=== PATIENT | male | born 1940 | race Caucasian/White ===

== ENCOUNTER 2020-05-03 08:45 | Inpatient (IN) | payer MEDICARE ==
[~2020-05-03] VITALS: Ht 182.9 cm; Wt 92.7 kg
[2020-05-03] VITALS (11 sets, daily range): BP systolic 111–147; BP diastolic 49–86; PULSE 58–83; TEMP 98.2–98.7
[2020-05-03 09:43] LABS: INR 1.2 (0.8-3.0); PROTHROMBIN TIME 13.5 SECONDS (9.7-12.8)
[2020-05-03] MEDS ORDERED: FOSAMAX 70MG TA70 MG PO (09:44)
[2020-05-03 09:48] LABS: CALCIUM 9.9 mg/dL (8.4-10.2); CREATININE, serum 1.25 (0.66-1.25); POTASSIUM 3.8 mmol/L (3.4-5.0)
[2020-05-03] MEDS ORDERED: LIPITOR 40MG TA40 MG PO (09:48)
[2020-05-03] MEDS ORDERED: CALCIUM CARBON500 M1 PO (09:48)
[2020-05-03] MEDS ORDERED: ANORO IH (09:48)
[2020-05-03] MEDS ORDERED: FLUORIDEX112 GM DT (09:49)
[2020-05-03] MEDS ORDERED: COZAAR 50MG50 MG/TAB PO (09:49)
[2020-05-03] MEDS ORDERED: TRUSOPT OCUMETE10 ML OU (09:50)
[2020-05-03] MEDS ORDERED: FIBER0.52 GM PO (09:50)
[2020-05-03] MEDS ORDERED: LUNESTA3 MG PO (09:51)
[2020-05-03] MEDS ORDERED: XALATAN EYE DROPS OD (09:51)
[2020-05-03] MEDS ORDERED: LASIX 80MG TABL80 MG PO (09:51)
[2020-05-03] MEDS ORDERED: TOPROL XL 50MG50 MG PO (09:52)
[2020-05-03] MEDS ORDERED: REMERON45 MG PO (09:53)
[2020-05-03] MEDS ORDERED: ONE-A-DAY ESSE1 EACH PO (09:53)
[2020-05-03] MEDS ORDERED: NITROSTAT0.4 MG/TAB SL (09:54)
[2020-05-03] MEDS ORDERED: PRIL40 PO (09:54)
[2020-05-03] MEDS ORDERED: OMEGA-3 1000 MG1 CAP PO (09:54)
[2020-05-03] MEDS ORDERED: PROAIR HFA0.09 MG/AC IH (09:55)
[2020-05-03] MEDS ORDERED: K-DUR 10 MEQ T10 MEQ PO (09:55)
[2020-05-03] MEDS ORDERED: VITAMIN D 400400 IU PO (09:56)
[2020-05-03] MEDS ORDERED: STOOL SOFTENER240 M1 PO (09:56)
[2020-05-03] MEDS ORDERED: COUMADIN 5MG5 MG/TAB PO (09:57)
[2020-05-03 09:58] LABS: BASO # 0.1 (0.0-0.2); BASO % 0.6 % (0.0-2.0); EOS # 0.4 (0.0-0.7); EOS % 3.9 % (0-4.0); GRAN # 6.3 (1.4-6.5); GRAN % 67.7 % (42.2-75.2); HEMATOCRIT 42.7 % (42.0-52.0); HEMOGLOBIN 13.8 g/dl (13.5-18.0); LYMPH # 1.7 (1.2-3.4); MEAN CELL VOLUME 99 fl (80.0-100.0); MEAN CORPUSCULAR HEMOGLOBIN 32 pg (27.0-31.0); MEAN CORPUSCULAR HGB CONC 32 g/dl (33.0-37.0); MEAN PLATELET VOLUME 10.6 fl (7.4-10.4); MONO # 0.9 (0.1-0.6); MONO % 9.5 % (1.7-9.3); PLATELET COUNT 157 K/mm3 (130-400); RED BLOOD COUNT 4.32 M/mm3 (4.20-5.60); REDCELL DISTRIBUTION WIDTH-CV 12.6 % (11.5-14.5)
--- NOTE | 2020-05-03 10:20 | NUR ---
Pt was taken to blood bank laboratory technician by VIOLA Ibarra. accompanies to wait in [employer]ing [employer]ines [employer]person waiting room with pt's belongings. He will be taken to medical unit following pacemaker placement.
--- NOTE | 2020-05-03 10:43 | NUR ---
SEE MERGE FOR ALL MEDICATION ADMINISTRATION TIMES, INTRA AND POST SEDATION ASSESSMENTS
--- NOTE | 2020-05-03 12:00 | NUR ---
returned to room from laborer syrup machine, awake and alert, IV infusing per dial-a-flow at 30ml/hr, to left hand, IV site is without redness or swelling, left arm in sling and patient instructed on use of sling, has dressing to left upper chest over pacemaker site and is CD&I, dressing over mid chest where loop recorder removed is CD&I, ice placed over pacemaker site, denies needs, at bedside
--- NOTE | 2020-05-03 13:00 | NUR ---
full assessment completed, see interventions for further info
--- NOTE | 2020-05-03 13:30 | NUR ---
resting in bed ready to have lunch, denies needs
--- NOTE | 2020-05-03 14:15 | NUR ---
resting in bed with eyes closed, VS obtained, denies needs
--- NOTE | 2020-05-03 16:41 | NUR ---
assisted up to bathroom and voided qs, then assisted over to the recliner and will sit up in chair for a while, both sites are CD&I and sling remains in place to left arm
--- NOTE | 2020-05-03 17:45 | NUR ---
remains up in chair and is now eating supper
--- NOTE | 2020-05-03 19:08 | NUR ---
bedside shift report given to VIOLA Sánchez
--- NOTE | 2020-05-03 21:17 | NUR ---
Patient alert and oriented, complain of mild pain to left chest. Patient ambulate independently in the room. Pacemaker placement incision site and loop recorder remover site dressings appear dry, intact, no redness or edema. Patient was educated on arm restriction. No further question or concern at this time.
--- NOTE | 2020-05-04 04:10 | NUR ---
Patient awake, completed pacemaker download.
[2020-05-04 04:37] VITALS: BP 118/55; PULSE 60; TEMP 98.2
[2020-05-04 06:59] LABS: BASO # 0.1 (0.0-0.2); BASO % 0.6 % (0.0-2.0); EOS # 0.3 (0.0-0.7); EOS % 3.6 % (0-4.0); GRAN # 5.3 (1.4-6.5); GRAN % 66.3 % (42.2-75.2); HEMATOCRIT 39.9 % (42.0-52.0); HEMOGLOBIN 12.5 g/dl (13.5-18.0); LYMPH # 1.6 (1.2-3.4); LYMPH % 19.6 % (20.0-51.0); MEAN CELL VOLUME 102 fl (80.0-100.0); MEAN CORPUSCULAR HEMOGLOBIN 32 pg (27.0-31.0); MEAN CORPUSCULAR HGB CONC 31 g/dl (33.0-37.0); MEAN PLATELET VOLUME 11.1 fl (7.4-10.4); MONO # 0.8 (0.1-0.6); MONO % 9.5 % (1.7-9.3); PLATELET COUNT 135 K/mm3 (130-400); RED BLOOD COUNT 3.93 M/mm3 (4.20-5.60); REDCELL DISTRIBUTION WIDTH-CV 12.6 % (11.5-14.5)
[2020-05-04 07:01] LABS: INR 1.2 (0.8-3.0); PROTHROMBIN TIME 13.4 SECONDS (9.7-12.8)
[2020-05-04 07:24] LABS: CALCIUM 9.1 mg/dL (8.4-10.2); CREATININE, serum 1.33 (0.66-1.25)
[2020-05-04 08:24] VITALS: BP 124/58; PULSE 61; TEMP 98.6
--- NOTE | 2020-05-04 09:41 | NUR ---
Patient A/O x4. Dressings to left upper chest and chest area clean/dry/intact. No signs and symptoms of infection. Patient stated very mild discomfort to his left shoulder area upon moving/ambulating. Patient denied any pain meds. Left hand IV site has no signs and symptoms of complications. Scheduled moring medications given. QTC level was 506. Called Cardiology and spoke to nurse practitioner Yi. Per Yi, patient can have Betapace. Patient denied need at this time.
--- NOTE | 2020-05-04 11:06 | NUR ---
First visit from the lumber inspector. No needs right now.
[2020-05-04 11:38] VITALS: BP 121/58; PULSE 60; TEMP 98.2
--- NOTE | 2020-05-04 16:17 | NUR ---
Magnetic Tester met with patient to discuss discharge planning. Patient lives in [place] with his , Areli (ph#[phone]) and sees Dr. English in [place] for primary care. Patient obtains medications from [facility] with no difficulties. Patient has a CPAP and oxygen concentrator at home from [facility] out of [place]. Patient states he uses oxygen with ambulation. Patient uses no other DME and reports independence with ADLS. Patient does not have Advance Directives and was not interested in completing DPOA-HC form at this time. Patient plans to return home upon discharge with Areli providing transportation.
[2020-05-04 16:51] VITALS: BP 95/57; PULSE 56; TEMP 98.4
--- NOTE | 2020-05-04 18:26 | NUR ---
Patient alert and oriented. Denies any pain or discomfort while at rest. Slight discomofort to left shoulder area upon movement. Scheduled for Cardioversion at 11:30 am tomorrow. Instruction provided. Will give report to power and recovery shift engineer RN.
[2020-05-04 19:26] VITALS: BP 114/57; PULSE 62; TEMP 99.4
--- NOTE | 2020-05-04 20:20 | NUR ---
Resting in bed. Assessment complete. Lungs clear. Heart sounds normal. Bowels active x4. Pulses present throughout. +1 edema to bilateral lower extremities noted. INT left hand flushed without complications. Denies pain. Left upper chest incision and medial chest incision CDI with gauze as dressing. Patient denies needs at this time. Call light in reach.
[2020-05-04 23:51] VITALS: BP 115/57; PULSE 62; TEMP 98.7
--- NOTE | 2020-05-04 23:52 | NUR ---
Resting in recliner. Denies needs. Call light in reach.
--- NOTE | 2020-05-05 02:22 | NUR ---
Resting in bed. Denies needs. Call light in reach.
[2020-05-05 04:17] VITALS: BP 109/61; PULSE 65; TEMP 97.7
--- NOTE | 2020-05-05 06:02 | NUR ---
Patient had uneventful night. NPO since midnight with the execption of sips of water with medications. Resting in bed this AM. Call light in reach.
--- NOTE | 2020-05-05 07:02 | NUR ---
Report given to VIOLA Langston
[2020-05-05 07:25] LABS: BASO # 0.1 (0.0-0.2); BASO % 0.9 % (0.0-2.0); EOS # 0.3 (0.0-0.7); EOS % 3.5 % (0-4.0); GRAN # 5.2 (1.4-6.5); GRAN % 65.4 % (42.2-75.2); HEMATOCRIT 42.7 % (42.0-52.0); HEMOGLOBIN 13.5 g/dl (13.5-18.0); LYMPH # 1.6 (1.2-3.4); LYMPH % 20.4 % (20.0-51.0); MEAN CELL VOLUME 100 fl (80.0-100.0); MEAN CORPUSCULAR HEMOGLOBIN 32 pg (27.0-31.0); MEAN CORPUSCULAR HGB CONC 32 g/dl (33.0-37.0); MEAN PLATELET VOLUME 10.9 fl (7.4-10.4); MONO # 0.7 (0.1-0.6); MONO % 9.4 % (1.7-9.3); PLATELET COUNT 143 K/mm3 (130-400); RED BLOOD COUNT 4.28 M/mm3 (4.20-5.60); REDCELL DISTRIBUTION WIDTH-CV 12.6 % (11.5-14.5)
[2020-05-05 07:36] LABS: INR 1.2 (0.8-3.0); PROTHROMBIN TIME 13.5 SECONDS (9.7-12.8)
[2020-05-05 07:40] LABS: CALCIUM 9.2 mg/dL (8.4-10.2); CREATININE, serum 1.5 (0.66-1.25); POTASSIUM 3.8 mmol/L (3.4-5.0)
[2020-05-05 08:12] VITALS: BP 104/59; PULSE 62; TEMP 98.1
[2020-05-05 11:16] LABS: COLLECTION METHOD CLEAN CATCH
[2020-05-05 11:20] LABS: MUCOUS Present /lpf; PH 5 (5-8); SQUAMOUS EPITHELIAL None Seen /hpf; URINE APPEARANCE Hazy; URINE BACTERIA None Seen /hpf; URINE BILIRUBIN Negative (NEGATIVE); URINE BLOOD Negative (NEGATIVE); URINE COLOR Yellow; URINE GLUCOSE Negative (NEGATIVE); URINE KETONE Negative (NEGATIVE); URINE LEUKOCYTE ESTERASE Negative (NEGATIVE); URINE NITRATE Negative (NEGATIVE); URINE PROTEIN(semi-quant) Negative (NEGATIVE); URINE RBC 0-2 /hpf; URINE UROBILINOGEN Negative (NEGATIVE)
[2020-05-05 11:49] VITALS: BP 114/62; PULSE 62; TEMP 98
[2020-05-05] MEDS ORDERED: CLEOCIN HCL300 MG PO (12:02)
--- NOTE | 2020-05-05 12:02 | NUR ---
Patient A/O x4. Patient was NPO since midnight for Cardioversion procedure today. QTC level was 514. Called single pointed operator and received order to given 60 mg of Betapace instead of 80mg. Scheduled morning meds given per order. Patient denies any needs at this time.
[2020-05-05] MEDS ORDERED: BETAPACE 120MG120 MG PO (12:07)
[2020-05-05] MEDS ORDERED: LASIX 40MG TABL40 MG PO (12:08)
--- NOTE | 2020-05-05 14:05 | NUR ---
Discharge order received from MD. Discharge paperwork reviewed with patient and signed. Patient and spouse in the room. Education provided for current and new medications and for s/s of pacemaker incision site. Patient verbalized understanding. Left hand IV discontinued and EKG devices removed. Staff used wheelchair to escort patient out of the room to his car in the parking lot. Care transferred to patient's spouse at 1400.
== END 2020-05-05 14:00 | disposition home or self-care (01) | DRG 243 ==
LOC: COL.CAR 08:45 → MEDICAL 11:38
PROVIDERS: Nurse Practitioner; ADMIT Internal Medicine Cardiovascular Disease
PROC: 0JH606Z Insertion of Pacemaker, Dual Chamber into Chest Subcutaneous Tissue and Fascia, Open Approach (ICD-10-PCS; principal; 2020-05-03)
PROC: 02HK3JZ Insertion of Pacemaker Lead into Right Ventricle, Percutaneous Approach (ICD-10-PCS; 2020-05-03)
PROC: 02H63JZ Insertion of Pacemaker Lead into Right Atrium, Percutaneous Approach (ICD-10-PCS; 2020-05-03)
PROC: 0JPT32Z Removal of Monitoring Device from Trunk Subcutaneous Tissue and Fascia, Percutaneous Approach (ICD-10-PCS; 2020-05-03)
DX: I44.1 Atrioventricular block, second degree (principal); L76.32 Postprocedural hematoma of skin and subcutaneous tissue following other procedure; I48.92 Unspecified atrial flutter; I25.10 Atherosclerotic heart disease of native coronary artery without angina pectoris; I48.91 Unspecified atrial fibrillation; Z88.0 Allergy status to penicillin; Z88.2 Allergy status to sulfonamides; Y83.8 Other surgical procedures as the cause of abnormal reaction of the patient, or of later complication, without mention of misadventure at the time of the procedure
CPT/HCPCS: C1785; C1894; C1898; J1650; J2250; J3010; J3370; J7030; J7050; Q9967

== ENCOUNTER 2020-08-11 07:06 | Day surgery (SDC) | payer MEDICARE ==
[~2020-08-11] VITALS: Ht 183 cm; Wt 91.6 kg
[~2020-08-11 07:06] MED LIST: ANORO IH; BETAPACE 120MG120 MG PO; CALCIUM CARBON500 M1 PO; CLEOCIN HCL300 MG PO; COUMADIN 5MG5 MG/TAB PO; COZAAR 50MG50 MG/TAB PO; FIBER0.52 GM PO; FLUORIDEX112 GM DT; FOSAMAX 70MG TA70 MG PO; K-DUR 10 MEQ T10 MEQ PO; LASIX 40MG TABL40 MG PO; LASIX 80MG TABL80 MG PO; LIPITOR 40MG TA40 MG PO; LUNESTA3 MG PO; NITROSTAT0.4 MG/TAB SL; OMEGA-3 1000 MG1 CAP PO; ONE-A-DAY ESSE1 EACH PO; PRIL40 PO; PROAIR HFA0.09 MG/AC IH; REMERON45 MG PO; STOOL SOFTENER240 M1 PO; TOPROL XL 50MG50 MG PO; TRUSOPT OCUMETE10 ML OU; VITAMIN D 400400 IU PO; XALATAN EYE DROPS OD
[2020-08-11 08:06] LABS: HEMATOCRIT 47.3 % (42.0-52.0); HEMOGLOBIN 14.7 g/dl (13.5-18.0); MEAN CELL VOLUME 103 fl (80.0-100.0); MEAN CORPUSCULAR HEMOGLOBIN 32 pg (27.0-31.0); MEAN CORPUSCULAR HGB CONC 31 g/dl (33.0-37.0); MEAN PLATELET VOLUME 10.2 fl (7.4-10.4); PLATELET COUNT 114 K/mm3 (130-400); RED BLOOD COUNT 4.58 M/mm3 (4.20-5.60); REDCELL DISTRIBUTION WIDTH-CV 13.2 % (11.5-14.5)
[2020-08-11 08:10] LABS: CALCIUM 9.7 mg/dL (8.4-10.2); CREATININE, serum 1.19 (0.66-1.25); MAGNESIUM 2.2 mg/dL (1.6-2.3); POTASSIUM 4.1 mmol/L (3.4-5.0)
[2020-08-11 08:25] LABS: INR 2.5 (0.8-3.0); PROTHROMBIN TIME 27.7 SECONDS (9.7-12.8)
[2020-08-11 08:28] LABS: PARTIAL THROMBOPLASTIN TIME 42.9 SECONDS (26.0-37.0)
[2020-08-11 08:40] LABS: THYROID STIMULATING HORMONE 6.97 uIU/mL (0.465-4.680)
[2020-08-11] MEDS ORDERED: MUCINEX 60600 MG/TA1 PO (08:40)
[2020-08-11] MEDS ORDERED: LASIX 40MG TABL40 MG PO (08:41)
[2020-08-11] MEDS ORDERED: FEOSOL45 MG PO (08:42)
[2020-08-11] MEDS ORDERED: BETAPACE 120MG120 MG PO (08:43)
[2020-08-11] MEDS ORDERED: COUMADIN4 MG PO (08:53)
[2020-08-11] MEDS ORDERED: TOPROL XL 25MG25 MG PO (08:54)
[2020-08-11] MEDS ORDERED: PULMICORT180 MCG/Ac IH (08:56)
[2020-08-11 08:58] VITALS: BP 133/80; PULSE 60; TEMP 97.7
[2020-08-11 09:35] VITALS: BP 108/68; PULSE 69
--- NOTE | 2020-08-11 09:40 | NUR ---
rEPORT FROM Michael Nunes
[2020-08-11 09:45] VITALS: BP 123/87; PULSE 70
[2020-08-11 10:00] VITALS: BP 139/106; PULSE 69
[2020-08-11] MEDS ORDERED: BETAPACE 80MG80 MG PO (10:09)
[2020-08-11 10:15] VITALS: BP 128/76; PULSE 71
--- NOTE | 2020-08-11 11:10 | NUR ---
Discharge instructions given to pt.Pt verbalizes understanding.INT removed,catheter tip intact.Pt escorted out via wheelchair by this nurse.
== END 2020-08-11 12:31 | disposition home or self-care (01) ==
LOC: COL.CAR 07:06
PROVIDERS: Internal Medicine Cardiovascular Disease
DX: I48.0 Paroxysmal atrial fibrillation (principal); I08.1 Rheumatic disorders of both mitral and tricuspid valves; I25.10 Atherosclerotic heart disease of native coronary artery without angina pectoris; I10 Essential (primary) hypertension; I49.5 Sick sinus syndrome; E78.00 Pure hypercholesterolemia, unspecified; Z88.0 Allergy status to penicillin; Z88.8 Allergy status to other drugs, medicaments and biological substances; Z95.1 Presence of aortocoronary bypass graft; E78.5 Hyperlipidemia, unspecified; Z95.0 Presence of cardiac pacemaker; G47.33 Obstructive sleep apnea (adult) (pediatric); J44.9 Chronic obstructive pulmonary disease, unspecified; Z87.891 Personal history of nicotine dependence; K21.9 Gastro-esophageal reflux disease without esophagitis; F32.9 Major depressive disorder, single episode, unspecified; F41.9 Anxiety disorder, unspecified; D64.9 Anemia, unspecified; Z85.828 Personal history of other malignant neoplasm of skin
CPT/HCPCS: J2704